=== PATIENT | female | born 1940 | race Caucasian/White ===

== ENCOUNTER 2018-09-18 14:27 | Inpatient (IN) | payer MEDICARE, OTHER ==
[~2018-09-18] VITALS: Ht 167.6 cm; Wt 92.1 kg
[~2018-09-18 14:27] MED LIST: CALCAVITDA PO; ERGO400 PO; FISH1000 PO; OMEP20ER PO; SIMV5; TOCO1000 PO
[2018-09-18] MEDS ORDERED: ATOR10 PO (14:54)
[2018-09-18] MEDS ORDERED: SERT50 PO (14:54)
[2018-09-18] MEDS ORDERED: METO25ER PO (14:55)
[2018-09-18 15:03] LABS: BASOPHILS ABSOLUTE AUTO 0.08 K/mm3 (0.00-0.23); BASOPHILS PERCENT AUTO 1 % (0-2); EOSINOPHILS ABSOLUTE AUTO 0.11 K/mm3 (0.00-0.68); EOSINOPHILS PERCENT AUTO 2 % (0-6); Hematocrit 44.3 % (33.0-51.0); Hemoglobin 14.5 g/dL (11.5-16.0); IMMATURE GRAN ABSOLUTE AUTO 0.01 K/mm3 (0.00-0.10); IMMATURE GRAN PERCENT AUTO 0 % (0-1); LYMPHOCYTES PERCENT AUTO 32 % (21-46); MONOCYTES ABSOLUTE AUTO 0.61 K/mm3 (0.16-1.47); MONOCYTES PERCENT AUTO 11 % (4-13); Mean Corpuscular HGB 30.3 pg (26.0-34.0); Mean Corpuscular HGB Conc 32.7 g/dL (31.5-36.5); Mean Corpuscular Volume 93 fL (80-100); Mean Platelet Volume 9.2 fL (9.1-12.4); NEUTROPHILS ABSOLUTE AUTO 2.97 K/mm3 (1.96-9.15); NEUTROPHILS PERCENT AUTO 53 % (41-73); Platelet Count 222 K/mm3 (150-400); RDW Coefficient Variation 13.2 % (11.7-14.2); RDW Standard Deviation 44.6 fL (35.1-46.3); Red Blood Cell Count 4.78 M/mm3 (3.80-5.20); White Blood Cell Count 5.58 K/mm3 (4.00-11.30)
[2018-09-18 15:12] LABS: Alanine Aminotransfer (ALT/SGP 24 U/L (12-78); Albumin, Blood 3.8 g/dL (3.4-5.0); Albumin/Globulin Ratio 1.2 (0.8-1.8); Alk Phos 119 U/L (50-136); Anion Gap 8 mmol/L (6-16); Aspartate Aminotrans (AST/SGOT 25 U/L (12-37); Bilirubin, Total 0.6 mg/dL (0.1-1.0); Blood Urea Nitrogen 12 mg/dL (8-24); Bun/Creatinine Ratio 17.8 (12.0-20.0); CO2, Blood 26 mmol/L (21-32); Calcium, Blood 8.6 mg/dL (8.5-10.1); Chloride, Blood 110 mmol/L (98-108); Creatinine, Blood 0.68 mg/dL (0.40-1.00); Globulin, Blood 3.3 g/dL (2.2-4.0); Glomerular Filtration Rate >60 (60-); Glucose, Blood 95 mg/dL (70-99); Potassium, Blood 4.2 mmol/L (3.5-5.5); Sodium, Blood 144 mmol/L (136-145); Total Protein, Blood 7.1 g/dL (6.4-8.2); Troponin I <0.015 ng/mL (0.000-0.040)
[2018-09-18 16:23] LABS: Source, Urine Catheter
[2018-09-18 16:48] LABS: Appearance, Urine Clear (Clear); Bilirubin, Urine Neg (Neg); Blood, Urine Neg (Neg); Color, Urine Yellow (P-Yellow); Glucose Qualitative, Urine Neg (Neg); Ketones, Urine Neg (Neg); Leukocyte Esterase, Urine Neg (Neg); Nitrite, Urine Neg (Neg); Protein, Urine Neg (Neg); Specific Gravity, Urine 1.005 (1.003-1.022); Urobilinogen, Urine NORM (Normal)
[2018-09-18 18:34] LABS: International Normalized Ratio 0.94
[2018-09-18 20:33] LABS: Test Name PTT
[2018-09-18] MEDS ORDERED: Omeprazole20 M1 PO (23:02)
--- NOTE | 2018-09-19 03:58 | NUR ---
T/F AND SUMMARY: REPORT RECIEVED FROM IRASEMA BARRETT RN AND PT T/F VIA BED TO ROOM 310 W/DAUGHTER (ANASTACIA) AT BEDSIDE. PT ADMITTED W/POSSIBLE STROKE AND EXPRESSIVE APHASIA. SHE'S BEEN A/OX4, SPECIFYING NEEDS AND ANSWERING Q'S APPROPRIATELY BUT SEEMS TO HAVE SOMEWHAT DELAYED RESPONSES AT TIMES. 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 NO FACIAL DROOP OBSERVED AND PT TOLERATED SIPS OF WATER W/MEDS W/O SWALLOW DIFFICULTIES. SHE'S BEEN NPO FOR CORONARY RISK PANEL SINCE RECIEVING HS MEDS. TELEMETRY IN PLACE IN NSR AT 60'S-70'S BPM. PT AMBULATES W/SBA TO TOILET AND NO DEFICITS OR WEAKNESS OBSERVED. PAS INTACT. ECHO PLANNED FOR THIS AM AND PT TO F/U W/NEURO AT [facility] AFTER D/C. NO ACUTE CHANGES, VSS/AFEBRILE. WILL REPORT TO DAY RN.
[2018-09-19 05:24] LABS: Hematocrit 41.5 % (33.0-51.0); Hemoglobin 13.5 g/dL (11.5-16.0); Mean Corpuscular HGB 29.9 pg (26.0-34.0); Mean Corpuscular HGB Conc 32.5 g/dL (31.5-36.5); Mean Corpuscular Volume 92 fL (80-100); Mean Platelet Volume 9.1 fL (9.1-12.4); Platelet Count 213 K/mm3 (150-400); RDW Coefficient Variation 13.1 % (11.7-14.2); RDW Standard Deviation 43.8 fL (35.1-46.3); Red Blood Cell Count 4.51 M/mm3 (3.80-5.20); White Blood Cell Count 6.15 K/mm3 (4.00-11.30)
[2018-09-19 05:45] LABS: Anion Gap 7 mmol/L (6-16); Blood Urea Nitrogen 10 mg/dL (8-24); Bun/Creatinine Ratio 15.8 (12.0-20.0); CHOL/HDL RATIO 2.8; CO2, Blood 26 mmol/L (21-32); Calcium, Blood 8.1 mg/dL (8.5-10.1); Chloride, Blood 110 mmol/L (98-108); Cholesterol 226 mg/dL (50-200); Creatinine, Blood 0.63 mg/dL (0.40-1.00); Glomerular Filtration Rate >60 (60-); Glucose, Blood 88 mg/dL (70-99); HDL Cholesterol 81 mg/dL (>39); LDL/HDL RATIO 1.5; Low Density Lipoprotein Chol 125 mg/dL (0-110); Potassium, Blood 3.7 mmol/L (3.5-5.5); Sodium, Blood 143 mmol/L (136-145); Triglycerides 99 mg/dL (30-160); Very Low Density Lipoprot Chol 19 mg/dL (6-32)
--- NOTE | 2018-09-19 13:00 | NUR ---
Echocardiogram completed.
--- NOTE | 2018-09-19 22:34 | NUR ---
PATIENT AMBULATED OUT INTO [facility] UNABLE TO VERBALIZE HER NEEDS. PATIENT REDIRECTED BACK INTO ROOM. PATIENT ASKED A FEW QUESTIONS AND WANTED HER TV TURNED OFF. GOING TO CHANGE CALL LIGHT SYSTEM TO TAB SYSTEM. PATIENT BACK INTO BED TO GO TO SLEEP. WILL CONTINUE TO MONITOR.
--- NOTE | 2018-09-20 00:01 | NUR ---
PATIENT CALL LIGHT CHANGED TO TOUCH PAD. INSTRUCTIONS GIVEN. WILL CONTINUE TO MONITOR.
--- NOTE | 2018-09-20 03:52 | NUR ---
SHIFT SUMMARY PATIENT WITH POSSIBLE EXPRESSIVE APHASIA UNABLE TO VERBALIZE HER NEEDS. PATIENT AMBULATED OUT INTO THE [place] AND WAS REDIRECTED BACK INTO THE ROOM. PATIENT POINTED TO WHITE BOARD AND TV. AFTER A FEW QUESTIONS, PATIENT NODDED SHE WANTED THE TV OFF. NEURO CHECKS STABLE PEDAL STRENGTH EQUAL BILATERALLY. RIGHT HAND WEAK AND LEFT HAND STRONG. TAKES MEDICATION WHOLE WITH WATER. AXO X4 AND STABLE SBA TO BR. PIV REMAINS INTACT. TRAFFIC OPERATOR REPORTS NSR 65. DENIES PAIN, SOB, AND N/V. VSS/AFEBRILE. TOUCH PAD CALL SYSTEM IN PLACE. BED IN LOWEST POSITION. WILL CONTINUE TO MONITOR UNTIL DAY SHIFT NURSE ASSUMES CARE.
--- NOTE | 2018-09-20 18:39 | NUR ---
SHIFT SUMMARY: NO ACUTE CHANGES TO REPORT THIS SHIFT. PT A&O; CALM & COOPERATIVE WITH CARE. NO C/O PAIN OR NAUSEA THIS SHIFT. EVOLVING CVA; R HAND WEAK; R SIDE FACIAL DROOP; EXPRESSIVE APHASIA.; NEURO CONSULT REQUESTED (DR. RODRIGUEZ) THIS SHIFT. HEAD CT PERFORMED THIS SHIFT; NO ACUTE CHANGES/MASSES. PT & OT EVAL & TREAT. WCTM.
--- NOTE | 2018-09-21 03:35 | NUR ---
SHIFT SUMMARY PATIENT HAD NO ACUTE CHANGES OBSERVED THIS SHIFT. AXOX 3 WITH ONE ASSIST TO BSC. NON VERBAL; EXPRESSIVE APHASIA; EVOLVING CVA WITH RIGHT HAND WEAKNESS AND RIGHT FACIAL DROOP. TAKES MEDS WHOLE WITH WATER. TOUCH PAD CALL LIGHT. BED ALARM ACTIVATED PATIENT IS NOT USING TOUCH PAD AFTER INSTRUCTIONS. VSS/AFEBRILE. DENIES PAIN, SOB, AND N/V. BED IN LOWEST POSITION. WILL CONTINUE TO MONITOR UNTIL DAY SHIFT NURSE ASSUMES CARE.
--- NOTE | 2018-09-21 18:16 | NUR ---
SHIFT SUMMARY: NO ACUTE CHANGES TO REPORT THIS SHIFT. EVOLVING CVA; EXPRESSIVE APHASIA. MRI OF HEAD THIS SHIFT; REPORT AVAILABLE. DYSPHAGIA PRECAUTIONS; MECHANICAL SOFT c GROUND MEAT; THIN LIQUIDS; UPRIGHT FOR MEALS; FEEDER. PT HAS BEEN DISCHARGED BY NEUROLOGY SERVICES. JADE.
--- NOTE | 2018-09-22 04:50 | NUR ---
SHIFT SUMMARY: PT IS ALERT, RESPONSIVE TO VERBAL STIMULI, ATTEMPTS VERBAL RESPONSE BUT IS UNABLE AT THIS TIME. PT HAS SIGNIFICANT R-SIDED WEAKNESS, MAX ASSIST, NOT OUT OF BED OVERNIGHT, 1-2 PERSON CHANGE. PT PUT ON BED AMANDA SEVERAL TIMES BUT DID NOT VOID, SEVERAL SMALL INCONTINENT VOIDS. PT SHOWS NO S/S FOR PAIN, NAUSEA, VOMITING, OR SOB. PT SLEPT INTERMITTENTLY THROUGHOUT THE NIGHT. NO ACUTE CHANGES. BED IN LOW POSITION, CALL LIGHT WITHIN REACH, BED ALARM SET.
--- NOTE | 2018-09-22 14:04 | NUR ---
PT APPEARS TO BE SLEEPING. NO S/SX OF DISTRESS.
--- NOTE | 2018-09-22 17:04 | NUR ---
TODAY THIS PT HAS HAD MANY VISITORS. SHE HAS SLEPT BETWEEN VISITORS. SHE HAS FED HERSELF MEALS AND APPLESAUCE BETWEEN MEALS. SHE IS UP AT 90 DEGREES FOR MEALS AND CAUTIOUSLY WATCHED FOR POCKETING FOOD AND ASPIRATION. WITH ASSISTANCE FROM PHYSICAL THERAPY, THE PT GOT UP IN THE RECLINER FOR ABOUT AN HOUR. A LIFT SHOULD BE USED TO TRANSFER THE PT. SHE IS EXTREMELY WEAK ON HER RIGHT SIDE, AND HER KNEE ANTHONY WHEN STANDING. A BED AMANDA HAS BEEN USED FOR TOILETING. HER FAMILY IS VERY INTERACTIVE AND CONTINUE TO TRY TO WORK WITH HER SPEECH AND EATING. NO ACUTE CHANGES THIS SHIFT. WILL CONTINUE TO MONITOR.
--- NOTE | 2018-09-23 04:50 | NUR ---
SHIFT SUMMARY: PT IS ALERT, CONTINUES TO HAVE EXPRESSIVE APHASIA AND HAS TROUBLE COMMUNICATING HER NEEDS. PT IS A LIFT FOR TRANSFERS. PT IS CALM AND COOPERATIVE WITH CARE. PT INCONTINENT OVERNIGHT, CHANGED AND CLEANED NEEDED. PT SHOWS NO S/S FOR PAIN, NAUSEA, VOMITING, OR SOB. PT SLEPT MUCH OF THE NIGHT. NO ACUTE CHANGES OR COMPLICATIONS THIS SHIFT. BED IN LOW POSITION, CALL LIGHT WITHIN REACH.
[2018-09-23 05:00] LABS: Hematocrit 44.2 % (33.0-51.0); Hemoglobin 14.5 g/dL (11.5-16.0); Mean Corpuscular HGB 30.5 pg (26.0-34.0); Mean Corpuscular HGB Conc 32.8 g/dL (31.5-36.5); Mean Corpuscular Volume 93 fL (80-100); Mean Platelet Volume 9.1 fL (9.1-12.4); Platelet Count 234 K/mm3 (150-400); RDW Standard Deviation 44.6 fL (35.1-46.3); Red Blood Cell Count 4.76 M/mm3 (3.80-5.20); White Blood Cell Count 8.05 K/mm3 (4.00-11.30)
[2018-09-23 05:20] LABS: Anion Gap 9 mmol/L (6-16); Blood Urea Nitrogen 30 mg/dL (8-24); Bun/Creatinine Ratio 39.1 (12.0-20.0); CO2, Blood 24 mmol/L (21-32); Calcium, Blood 8.4 mg/dL (8.5-10.1); Chloride, Blood 109 mmol/L (98-108); Creatinine, Blood 0.77 mg/dL (0.40-1.00); Glomerular Filtration Rate >60 (60-); Glucose, Blood 105 mg/dL (70-99); Potassium, Blood 3.5 mmol/L (3.5-5.5); Sodium, Blood 142 mmol/L (136-145)
--- NOTE | 2018-09-23 07:49 | NUR ---
ASSUMED CARE: PT CALLED FOR ASSISTANCE WITH BED AMANDA WHICH WAS PROVIDED. RIGHT SIDED FACIAL DROOP AND RIGHT SIDED WEAKNESS NOTED. CALL LIGHT IN REACH
--- NOTE | 2018-09-23 18:58 | NUR ---
THIS PT HAS HAD VISITORS ALL DAY AT THE BEDSIDE. SHE HAS WORKED ON FEEDING HERSELF WITH HER LEFT HAND. HER FAMILY ENCOURAGES HER TO COMMUNICATE WITH THEM AND EXERCISE HER RIGHT HAND. SHE GOT UP WITH PHYSICAL THERAPY TO THE RECLINER. SHE USES THE BEDPAN.
[2018-09-24 05:18] LABS: Anion Gap 7 mmol/L (6-16); Blood Urea Nitrogen 27 mg/dL (8-24); Bun/Creatinine Ratio 36.1 (12.0-20.0); CO2, Blood 26 mmol/L (21-32); Calcium, Blood 8.4 mg/dL (8.5-10.1); Chloride, Blood 108 mmol/L (98-108); Creatinine, Blood 0.75 mg/dL (0.40-1.00); Glomerular Filtration Rate >60 (60-); Glucose, Blood 112 mg/dL (70-99); Potassium, Blood 3.8 mmol/L (3.5-5.5); Sodium, Blood 141 mmol/L (136-145)
--- NOTE | 2018-09-24 05:32 | NUR ---
SHIFT SUMMARY: PT IS ALERT BUT NON-VERBAL. FAMILY IN THE ROOM AT START OF SHIFT. PT NOT USING HER CALL LIGHT, CONTINUES TO HAVE SUBSTANTIAL R. SIDED WEAKNESS. PT REQUIRES A LIFT FOR TRANSFERS. PT INTERMITTENTLY INCONTINENT, CHANGED AND CLEANED NEEDED. PT SHOWS NO S/S FOR PAIN, NAUSEA, VOMITING, OR SOB. NO ACUTE CHANGES OR COMPLICATIONS OVERNIGHT. BED IN LOW POSITION, CALL LIGHT WITHIN REACH. WILL REPORT TO DAY NURSE.
--- NOTE | 2018-09-24 12:52 | NUR ---
PERMISSION TO GIVE CARE Patient gave permission to [facility] to provide care on 09/25/18 from 0630 to 1200.
--- NOTE | 2018-09-24 18:51 | NUR ---
SHIFT SUMMARY- PT ABLE TO ANSWER YES/NO QUESTIONS AND FOLLOW SIMPLE DIRECTIONS. PT'S L SIDE IS MUCH WEAKER THAN THE RIGHT. PT/OT IN TO SEE PT TODAY. PLAN IS TO D/C TO IRU IN [facility] AT 9AM. FACILITY REQUEST NURSE CALL TO GIVE REPORT AT [phone] PRIOR TO PT LEAVING. WILL PASS ALONG TO VICE PRESIDENT OF NEWS RN. PT 2 ASSIST STAND PIVOT TRANSFER WITH GAIT BELT. PT TAKES PILLS WHOLE IN APPLESAUCE. AT BEDSIDE. PT DENIES SOB. RESP E/U ON RA. PT DENIES PAIN. DENIES N/V. NO OTHER SIGNIFICANT CHANGES THIS SHIFT.
--- NOTE | 2018-09-25 04:50 | NUR ---
SHIFT SUMMARY ALERT; ANSWERS Y/N QUESTIONS. DIFFICULT TO GET TRUE MEANING OF WHAT SHE IS REQUESTING. HAS PICTURE BOARD, BUT DOES NOT REALLY REFLECT HER NEEDS MUCH OF THE TIME. NO NOTED S/SX OF PAIN/DISCOMFORT. ROLLS EASILY TO R SIDE. NO ACUTE CHANGES OVERNIGHT. APPEARED TO REST MUCH OF SHIFT. VSS/AFEBRILE. TELE RUNNING NSR @ 67 PER PCU PUTTY MAKER. BED IN LOWEST POSITION. ALARM ON. CALL LIGHT AND BELONGINGS WITHIN REACH. WCTM. REPORT TO ONCOMING RN.
[2018-09-25] MEDS ORDERED: ATOR40TA PO (08:37)
[2018-09-25] MEDS ORDERED: METO50ER PO (08:37)
[2018-09-25] MEDS ORDERED: Omeprazole20 M1 PO (08:38)
[2018-09-25] MEDS ORDERED: ASPI81CH PO (08:38)
[2018-09-25] MEDS ORDERED: AMLO5 PO (08:38)
[2018-09-25] MEDS ORDERED: SERT50 PO (08:38)
[2018-09-25] MEDS ORDERED: LISI5 PO (08:39)
[2018-09-25] MEDS ORDERED: CLOP75 PO (08:39)
--- NOTE | 2018-09-25 09:14 | NUR ---
REPORT GIVEN TO VANGIE GONZALEZ AT [facility].
--- NOTE | 2018-09-25 09:35 | NUR ---
DISCHARGE NOTE PT TRANSFER TO [facility] VIA STRETCHER IN AMBULANCE. BROTHER TO FOLLOW TRANSPORT TEAM. ALL VALUABLES SENT WITH FAMILY AT TIME OF DISCHARGE. IV DISCONTINUED INTACT. TRANSFER PAPERWORK FAXED AND CONFIRMATION OF RECEIPT RECEIVED BY MACRINA DEAN RN. REPORT GIVEN TO LISA AT RECEIVING FACILITY.
== END 2018-09-25 09:56 | DRG 65 ==
LOC: ER 14:27 → MEDS 18:15
PROVIDERS: Emergency Medicine; ADMIT Internal Medicine
DX: I63.512 Cerebral infarction due to unspecified occlusion or stenosis of left middle cerebral artery (principal); G81.91 Hemiplegia, unspecified affecting right dominant side; R47.01 Aphasia; E78.5 Hyperlipidemia, unspecified; I10 Essential (primary) hypertension; F41.9 Anxiety disorder, unspecified; F32.9 Major depressive disorder, single episode, unspecified; I25.10 Atherosclerotic heart disease of native coronary artery without angina pectoris; K21.9 Gastro-esophageal reflux disease without esophagitis; E66.9 Obesity, unspecified; M81.0 Age-related osteoporosis without current pathological fracture; G44.209 Tension-type headache, unspecified, not intractable; Z95.1 Presence of aortocoronary bypass graft
CPT/HCPCS: 36415; 51701; 70450; 70496; 70498; 70551; 71046; 80048; 80053; 80061; 81003; 82947; 83036; 84484; 85025; 85027; 85610; 85730; 92507; 92523; 92610; 93005; 93010; 93306; 97110; 97112; 97116; 97162; 97166; 97530; 99285-25; G0515; J1650; Q9967

== ENCOUNTER 2019-12-18 19:53 | Emergency (ER) | payer MEDICARE, OTHER ==
[~2019-12-18] VITALS: Ht 170.2 cm; Wt 72.6 kg
[~2019-12-18 19:53] MED LIST changes: +AMLO5 PO; +ASPI81CH PO; +ATOR10 PO; +ATOR40TA PO; +CLOP75 PO; +LISI5 PO; +METO25ER PO; +METO50ER PO; +Omeprazole20 M1 PO; +SERT50 PO
[2019-12-18] MEDS ORDERED: CITA20 PO (20:22)
[2019-12-18] MEDS ORDERED: Abilify2 MG PO (20:22)
[2019-12-18] MEDS ORDERED: FAMO20 PO (20:22)
== END 2019-12-18 22:40 | disposition home or self-care (01) ==
LOC: ER 19:53
DX: S00.83XA Contusion of other part of head, initial encounter (principal); S80.212A Abrasion, left knee, initial encounter; F03.90 Unspecified dementia, unspecified severity, without behavioral disturbance, psychotic disturbance, mood disturbance, and anxiety; I25.810 Atherosclerosis of coronary artery bypass graft(s) without angina pectoris; I10 Essential (primary) hypertension; F41.8 Other specified anxiety disorders; K21.9 Gastro-esophageal reflux disease without esophagitis; Z79.82 Long term (current) use of aspirin; Z79.899 Other long term (current) drug therapy; W18.30XA Fall on same level, unspecified, initial encounter
CPT/HCPCS: 70450; 72125; 99284-25

== ENCOUNTER 2019-12-19 12:36 | Emergency (ER) | payer MEDICARE, OTHER ==
[~2019-12-19] VITALS: Ht 154.9 cm; Wt 65.8 kg
[~2019-12-19 12:36] MED LIST changes: +Abilify2 MG PO; +CITA20 PO; +FAMO20 PO
[2019-12-19 13:26] LABS: BASOPHILS ABSOLUTE AUTO 0.07 K/mm3 (0.00-0.23); BASOPHILS PERCENT AUTO 1 % (0-2); EOSINOPHILS ABSOLUTE AUTO 0.07 K/mm3 (0.00-0.68); EOSINOPHILS PERCENT AUTO 1 % (0-6); Hematocrit 43.7 % (33.0-51.0); Hemoglobin 14.2 g/dL (11.5-16.0); IMMATURE GRAN ABSOLUTE AUTO 0.02 K/mm3 (0.00-0.10); IMMATURE GRAN PERCENT AUTO 0 % (0-1); LYMPHOCYTES ABSOLUTE AUTO 1.56 K/mm3 (0.84-5.20); LYMPHOCYTES PERCENT AUTO 20 % (21-46); MONOCYTES PERCENT AUTO 6 % (4-13); Mean Corpuscular HGB 30.5 pg (26.0-34.0); Mean Corpuscular HGB Conc 32.5 g/dL (31.5-36.5); Mean Corpuscular Volume 94 fL (80-100); Mean Platelet Volume 8.6 fL (9.1-12.4); NEUTROPHILS ABSOLUTE AUTO 5.62 K/mm3 (1.96-9.15); NEUTROPHILS PERCENT AUTO 72 % (41-73); Platelet Count 242 K/mm3 (150-400); RDW Coefficient Variation 12.8 % (11.7-14.2); RDW Standard Deviation 44.1 fL (35.1-46.3); Red Blood Cell Count 4.66 M/mm3 (3.80-5.20); White Blood Cell Count 7.84 K/mm3 (4.00-11.30)
[2019-12-19 13:52] LABS: Alanine Aminotransfer (ALT/SGP 15 U/L (12-78); Albumin, Blood 3.9 g/dL (3.4-5.0); Albumin/Globulin Ratio 1.1 (0.8-1.8); Alk Phos 181 U/L (50-136); Anion Gap 5 mmol/L (6-16); Aspartate Aminotrans (AST/SGOT 17 U/L (12-37); Bilirubin, Total 0.8 mg/dL (0.1-1.0); Blood Urea Nitrogen 13 mg/dL (8-24); Bun/Creatinine Ratio 16.7 (12.0-20.0); CO2, Blood 29 mmol/L (21-32); Calcium, Blood 8.6 mg/dL (8.5-10.1); Chloride, Blood 107 mmol/L (98-108); Creatinine, Blood 0.78 mg/dL (0.40-1.00); Globulin, Blood 3.6 g/dL (2.2-4.0); Glomerular Filtration Rate >60 (60-); Glucose, Blood 89 mg/dL (70-99); Sodium, Blood 141 mmol/L (136-145); Total Protein, Blood 7.5 g/dL (6.4-8.2); Troponin I <0.015 ng/mL (0.000-0.040)
== END 2019-12-19 15:33 | disposition home or self-care (01) ==
LOC: ER 12:36
PROVIDERS: Emergency Medicine
DX: R07.9 Chest pain, unspecified (principal); I10 Essential (primary) hypertension; F41.8 Other specified anxiety disorders; K21.9 Gastro-esophageal reflux disease without esophagitis; I25.810 Atherosclerosis of coronary artery bypass graft(s) without angina pectoris; R47.01 Aphasia; Z86.73 Personal history of transient ischemic attack (TIA), and cerebral infarction without residual deficits; Z79.899 Other long term (current) drug therapy
CPT/HCPCS: 36415; 71046; 80053; 84484; 85025; 93005; 93010; 99285-25

== ENCOUNTER → 2020-01-24 | Outpatient (CLI) | payer MEDICARE, OTHER ==
[2020-01-24 16:50] LABS: Bilirubin, Urine Neg (Neg); Blood, Urine 3+ (Neg); Glucose Qualitative, Urine Neg (Neg); Ketones, Urine 1+ (Neg); Leukocyte Esterase, Urine 3+ (Neg); Nitrite, Urine Neg (Neg); Protein, Urine 2+ (Neg); Specific Gravity, Urine 1.025 (1.003-1.022); Urobilinogen, Urine 2+ (Normal)
[2020-01-24 17:05] LABS: Appearance, Urine Cloudy (Clear); Color, Urine Amber (P-Yellow)
[2020-01-24 17:06] LABS: White Blood Cells, Urine TNTC /hpf (0-5)
[2020-01-24 17:10] LABS: Bacteria Many /hpf; Squamous Epithelial Cells Few /hpf (Few)
== END | disposition home or self-care (01) ==
LOC: LAB SHORT 13:14 → LAB 13:14
PROVIDERS: Family Medicine
DX: N39.0 Urinary tract infection, site not specified (principal)
CPT/HCPCS: 81001; 87077; 87086; 87186

== ENCOUNTER 2020-04-20 11:46 | Emergency (ER) | payer MEDICARE, OTHER ==
[~2020-04-20] VITALS: Ht 172.7 cm; Wt 97.5 kg
[2020-04-20] MEDS ORDERED: Abilify2 MG PO (12:04)
[2020-04-20] MEDS ORDERED: ACET325 PO (12:04)
[2020-04-20] MEDS ORDERED: CLOP75 PO (12:05)
[2020-04-20] MEDS ORDERED: CITA20 PO (12:05)
[2020-04-20] MEDS ORDERED: ATOR20 PO (12:05)
[2020-04-20] MEDS ORDERED: TUMS500 MG PO (12:06)
[2020-04-20] MEDS ORDERED: METO25ER PO (12:06)
[2020-04-20 12:17] LABS: BASOPHILS ABSOLUTE AUTO 0.08 K/mm3 (0.00-0.23); BASOPHILS PERCENT AUTO 1 % (0-2); EOSINOPHILS PERCENT AUTO 2 % (0-6); Hematocrit 42.3 % (33.0-51.0); Hemoglobin 13.5 g/dL (11.5-16.0); IMMATURE GRAN ABSOLUTE AUTO 0.01 K/mm3 (0.00-0.10); IMMATURE GRAN PERCENT AUTO 0 % (0-1); LYMPHOCYTES ABSOLUTE AUTO 1.82 K/mm3 (0.84-5.20); LYMPHOCYTES PERCENT AUTO 28 % (21-46); MONOCYTES ABSOLUTE AUTO 0.55 K/mm3 (0.16-1.47); MONOCYTES PERCENT AUTO 8 % (4-13); Mean Corpuscular HGB 29.6 pg (26.0-34.0); Mean Corpuscular HGB Conc 31.9 g/dL (31.5-36.5); Mean Corpuscular Volume 93 fL (80-100); Mean Platelet Volume 8.4 fL (9.1-12.4); NEUTROPHILS ABSOLUTE AUTO 3.98 K/mm3 (1.96-9.15); NEUTROPHILS PERCENT AUTO 61 % (41-73); Platelet Count 251 K/mm3 (150-400); RDW Standard Deviation 44.5 fL (35.1-46.3); Red Blood Cell Count 4.56 M/mm3 (3.80-5.20); White Blood Cell Count 6.54 K/mm3 (4.00-11.30)
[2020-04-20 12:48] LABS: Alanine Aminotransfer (ALT/SGP 18 U/L (12-78); Albumin, Blood 3.4 g/dL (3.4-5.0); Albumin/Globulin Ratio 1.1 (0.8-1.8); Alk Phos 118 U/L (50-136); Anion Gap 5 mmol/L (6-16); Aspartate Aminotrans (AST/SGOT 13 U/L (12-37); Bilirubin, Total 0.5 mg/dL (0.1-1.0); Blood Urea Nitrogen 12 mg/dL (8-24); Bun/Creatinine Ratio 16.3 (12.0-20.0); CO2, Blood 28 mmol/L (21-32); Calcium, Blood 8.6 mg/dL (8.5-10.1); Chloride, Blood 105 mmol/L (98-108); Creatinine, Blood 0.74 mg/dL (0.40-1.00); Globulin, Blood 3.1 g/dL (2.2-4.0); Glomerular Filtration Rate >60 (60-); Glucose, Blood 97 mg/dL (70-99); Potassium, Blood 3.7 mmol/L (3.5-5.5); Sodium, Blood 138 mmol/L (136-145); Total Protein, Blood 6.5 g/dL (6.4-8.2); Troponin I <0.015 ng/mL (0.000-0.040)
== END 2020-04-20 16:27 | disposition home or self-care (01) ==
LOC: ER 11:46
PROVIDERS: Emergency Medicine
DX: R07.9 Chest pain, unspecified (principal); R42 Dizziness and giddiness; R41.0 Disorientation, unspecified; R00.2 Palpitations; I10 Essential (primary) hypertension; F41.9 Anxiety disorder, unspecified; F32.9 Major depressive disorder, single episode, unspecified; K21.9 Gastro-esophageal reflux disease without esophagitis; I25.810 Atherosclerosis of coronary artery bypass graft(s) without angina pectoris; Z95.1 Presence of aortocoronary bypass graft; Z79.02 Long term (current) use of antithrombotics/antiplatelets; Z86.73 Personal history of transient ischemic attack (TIA), and cerebral infarction without residual deficits; Z79.899 Other long term (current) drug therapy
CPT/HCPCS: 71045; 80053; 84484; 85025; 93005; 93010; 99285-25

== ENCOUNTER 2020-06-11 11:23 | Emergency (ER) | payer MEDICARE, OTHER ==
[~2020-06-11] VITALS: Ht 162.6 cm; Wt 77.1 kg
[~2020-06-11 11:23] MED LIST changes: +ACET325 PO; +ATOR20 PO; +TUMS500 MG PO
[2020-06-11] MEDS ORDERED: ATORVASTATIN CA20 MG PO (14:33)
== END 2020-06-11 17:53 | disposition home or self-care (01) ==
LOC: ER 11:23
DX: S93.401A Sprain of unspecified ligament of right ankle, initial encounter (principal); S00.03XA Contusion of scalp, initial encounter; I69.320 Aphasia following cerebral infarction; F41.9 Anxiety disorder, unspecified; F32.9 Major depressive disorder, single episode, unspecified; K21.9 Gastro-esophageal reflux disease without esophagitis; I10 Essential (primary) hypertension; I25.810 Atherosclerosis of coronary artery bypass graft(s) without angina pectoris; Z79.02 Long term (current) use of antithrombotics/antiplatelets; Z79.899 Other long term (current) drug therapy; Z95.1 Presence of aortocoronary bypass graft; W18.2XXA Fall in (into) shower or empty bathtub, initial encounter; Y92.121 Bathroom in nursing home as the place of occurrence of the external cause
CPT/HCPCS: 70450; 73562-RT; 73590; 73610; 73630; 99284-25

== ENCOUNTER → 2020-12-15 | Outpatient (CLI) | payer MEDICARE, OTHER ==
[~2020-12-15] MED LIST changes: +ATORVASTATIN CA20 MG PO
[2020-12-15 12:17] LABS: Bilirubin, Urine Neg (Neg); Blood, Urine Neg (Neg); Glucose Qualitative, Urine Neg (Neg); Ketones, Urine Neg (Neg); Leukocyte Esterase, Urine Neg (Neg); Nitrite, Urine Neg (Neg); Protein, Urine Neg (Neg); Specific Gravity, Urine 1.015 (1.003-1.022); Urobilinogen, Urine NORM (Normal)
[2020-12-15 12:18] LABS: Appearance, Urine Clear (Clear); Color, Urine Yellow (P-Yellow)
== END ==
LOC: LAB SHORT 10:05
PROVIDERS: Family Medicine
DX: N39.0 Urinary tract infection, site not specified (principal)
CPT/HCPCS: 81003

== ENCOUNTER 2021-01-14 16:06 | Emergency (ER) | payer MEDICARE, OTHER ==
[~2021-01-14] VITALS: Ht 162.6 cm; Wt 72.6 kg
[2021-01-14] MEDS ORDERED: PANT40 PO (17:01)
[2021-01-14 17:04] LABS: BASOPHILS ABSOLUTE AUTO 0.05 K/mm3 (0.00-0.23); BASOPHILS PERCENT AUTO 0 % (0-2); EOSINOPHILS ABSOLUTE AUTO 0.01 K/mm3 (0.00-0.68); EOSINOPHILS PERCENT AUTO 0 % (0-6); Hematocrit 41.6 % (33.0-51.0); Hemoglobin 13.6 g/dL (11.5-16.0); IMMATURE GRAN ABSOLUTE AUTO 0.03 K/mm3 (0.00-0.10); IMMATURE GRAN PERCENT AUTO 0 % (0-1); LYMPHOCYTES ABSOLUTE AUTO 0.84 K/mm3 (0.84-5.20); LYMPHOCYTES PERCENT AUTO 7 % (21-46); MONOCYTES ABSOLUTE AUTO 0.45 K/mm3 (0.16-1.47); MONOCYTES PERCENT AUTO 4 % (4-13); Mean Corpuscular HGB 30.4 pg (26.0-34.0); Mean Corpuscular HGB Conc 32.7 g/dL (31.5-36.5); Mean Corpuscular Volume 93 fL (80-100); Mean Platelet Volume 9.5 fL (9.1-12.4); NEUTROPHILS ABSOLUTE AUTO 9.95 K/mm3 (1.96-9.15); NEUTROPHILS PERCENT AUTO 88 % (41-73); Platelet Count 198 K/mm3 (150-400); RDW Coefficient Variation 13.1 % (11.7-14.2); RDW Standard Deviation 44.5 fL (35.1-46.3); Red Blood Cell Count 4.47 M/mm3 (3.80-5.20); White Blood Cell Count 11.33 K/mm3 (4.00-11.30)
[2021-01-14 17:16] LABS: Anion Gap 4 mmol/L (6-16); Blood Urea Nitrogen 13 mg/dL (8-24); Bun/Creatinine Ratio 17.2 (12.0-20.0); CO2, Blood 29 mmol/L (21-32); Chloride, Blood 109 mmol/L (98-108); Creatinine, Blood 0.75 mg/dL (0.40-1.00); Glomerular Filtration Rate >60 (60-); Glucose, Blood 120 mg/dL (70-99); Sodium, Blood 142 mmol/L (136-145)
[2021-01-14] MEDS ORDERED: Acetaminophen500 MG PO (19:43)
[2021-02-23] MEDS ORDERED: CEFP200 PO (01:08)
== END 2021-01-14 21:10 | disposition home or self-care (01) ==
LOC: ER 16:06
PROVIDERS: Student in an Organized Health Care Education/Training Program
DX: S42.201A Unspecified fracture of upper end of right humerus, initial encounter for closed fracture (principal); I69.351 Hemiplegia and hemiparesis following cerebral infarction affecting right dominant side; Z79.02 Long term (current) use of antithrombotics/antiplatelets; Z79.899 Other long term (current) drug therapy; W19.XXXA Unspecified fall, initial encounter; Y92.009 Unspecified place in unspecified non-institutional (private) residence as the place of occurrence of the external cause
CPT/HCPCS: 70450; 72125; 73030; 73502; 80048; 85025; 93005; 93010; 99284-25; A9270

== ENCOUNTER 2023-07-17 10:48 | Emergency (ER) | payer MEDICARE, OTHER ==
[~2023-07-17] VITALS: Ht 162.6 cm; Wt 74.8 kg
[~2023-07-17 10:48] MED LIST changes: +Acetaminophen500 MG PO; +CEFP200 PO; +DOCU100 PO; +ONDA4; +PANT40 PO; +ZYRTEC10 M1 PO
[2023-07-17 11:20] LABS: BASOPHILS ABSOLUTE AUTO 0.09 K/mm3 (0.00-0.23); BASOPHILS PERCENT AUTO 1 % (0-2); EOSINOPHILS PERCENT AUTO 1 % (0-6); Hemoglobin 13.2 g/dL (11.5-16.0); IMMATURE GRAN ABSOLUTE AUTO 0.02 K/mm3 (0.00-0.10); IMMATURE GRAN PERCENT AUTO 0 % (0-1); LYMPHOCYTES ABSOLUTE AUTO 2.31 K/mm3 (0.84-5.20); LYMPHOCYTES PERCENT AUTO 30 % (21-46); MONOCYTES ABSOLUTE AUTO 0.59 K/mm3 (0.16-1.47); MONOCYTES PERCENT AUTO 8 % (4-13); Mean Corpuscular HGB 29.3 pg (26.0-34.0); Mean Corpuscular HGB Conc 31.4 g/dL (31.5-36.5); Mean Corpuscular Volume 93 fL (80-100); Mean Platelet Volume 8.8 fL (9.1-12.4); NEUTROPHILS ABSOLUTE AUTO 4.49 K/mm3 (1.96-9.15); NEUTROPHILS PERCENT AUTO 59 % (41-73); Platelet Count 274 K/mm3 (150-400); RDW Coefficient Variation 13.2 % (11.7-14.2); RDW Standard Deviation 44.9 fL (35.1-46.3)
[2023-07-17 11:33] LABS: Albumin, Blood 3.7 g/dL (3.4-5.0); Bilirubin, Total 0.5 mg/dL (0.1-1.0); Bun/Creatinine Ratio 17.2 (12.0-20.0); Calcium, Blood 9.1 mg/dL (8.5-10.1); Creatinine, Blood 0.87 mg/dL (0.40-1.00); Globulin, Blood 3.7 g/dL (2.2-4.0); Potassium, Blood 3.7 mmol/L (3.5-5.5); Total Protein, Blood 7.4 g/dL (6.4-8.2)
[2023-07-17 12:32] LABS: Source, Urine Straight Cath
[2023-07-17 12:49] LABS: Appearance, Urine Turbid (Clear); Bilirubin, Urine Neg (Neg); Blood, Urine 4+ (Neg); Color, Urine Yellow (P-Yellow); Glucose Qualitative, Urine Neg (Neg); Ketones, Urine Neg (Neg); Leukocyte Esterase, Urine 3+ (Neg); Nitrite, Urine Pos (Neg); Protein, Urine 3+ (Neg); Specific Gravity, Urine 1.025 (1.003-1.022); Urobilinogen, Urine 1+ (Normal)
[2023-07-17 13:07] LABS: Bacteria Many /hpf; Squamous Epithelial Cells Few /hpf (Few); White Blood Cells, Urine TNTC /hpf (0-5)
[2023-07-17 13:08] LABS: Transitional Epithelial Cells Rare /hpf (0-Rare)
[2023-07-17] MEDS ORDERED: CEPH500 PO (14:23)
[2023-07-17 14:30] VITALS: BP 148/82
== END 2023-07-17 16:21 | disposition home or self-care (01) ==
LOC: ER 10:48
PROVIDERS: Emergency Medicine
DX: N39.0 Urinary tract infection, site not specified (principal); R07.89 Other chest pain; F03.90 Unspecified dementia, unspecified severity, without behavioral disturbance, psychotic disturbance, mood disturbance, and anxiety; Z88.8 Allergy status to other drugs, medicaments and biological substances; Z79.899 Other long term (current) drug therapy
CPT/HCPCS: 71045; 72170; 80053; 81001; 83690; 84484; 85025; 93005; 93010; 96365; 99285-25; J0696

== ENCOUNTER 2023-08-23 18:47 | Emergency (ER) | payer MEDICARE, OTHER ==
[~2023-08-23] VITALS: Ht 157.5 cm; Wt 90.7 kg
[~2023-08-23 18:47] MED LIST changes: +CEPH500 PO
[2023-08-23 19:39] LABS: BASOPHILS ABSOLUTE AUTO 0.07 K/mm3 (0.00-0.23); BASOPHILS PERCENT AUTO 1 % (0-2); EOSINOPHILS ABSOLUTE AUTO 0.14 K/mm3 (0.00-0.68); EOSINOPHILS PERCENT AUTO 2 % (0-6); Hematocrit 38.2 % (33.0-51.0); Hemoglobin 12.2 g/dL (11.5-16.0); IMMATURE GRAN ABSOLUTE AUTO 0.01 K/mm3 (0.00-0.10); IMMATURE GRAN PERCENT AUTO 0 % (0-1); LYMPHOCYTES ABSOLUTE AUTO 2.78 K/mm3 (0.84-5.20); LYMPHOCYTES PERCENT AUTO 39 % (21-46); MONOCYTES ABSOLUTE AUTO 0.59 K/mm3 (0.16-1.47); MONOCYTES PERCENT AUTO 8 % (4-13); Mean Corpuscular HGB 29.3 pg (26.0-34.0); Mean Corpuscular HGB Conc 31.9 g/dL (31.5-36.5); Mean Corpuscular Volume 92 fL (80-100); Mean Platelet Volume 9.2 fL (9.1-12.4); NEUTROPHILS ABSOLUTE AUTO 3.49 K/mm3 (1.96-9.15); NEUTROPHILS PERCENT AUTO 49 % (41-73); Platelet Count 230 K/mm3 (150-400); RDW Coefficient Variation 13.4 % (11.7-14.2); RDW Standard Deviation 45.5 fL (35.1-46.3); Red Blood Cell Count 4.16 M/mm3 (3.80-5.20); White Blood Cell Count 7.08 K/mm3 (4.00-11.30)
[2023-08-23 20:05] LABS: Albumin, Blood 3.5 g/dL (3.4-5.0); Bilirubin, Total 0.3 mg/dL (0.1-1.0); Bun/Creatinine Ratio 16.8 (12.0-20.0); Calcium, Blood 8.8 mg/dL (8.5-10.1); Creatinine, Blood 0.77 mg/dL (0.40-1.00); Globulin, Blood 3.5 g/dL (2.2-4.0); Potassium, Blood 3.8 mmol/L (3.5-5.5)
[2023-08-23 21:26] VITALS: BP 168/74
== END 2023-08-23 22:04 | disposition home or self-care (01) ==
LOC: ER 18:47
PROVIDERS: Emergency Medicine
DX: R07.89 Other chest pain (principal)
CPT/HCPCS: 71046; 80053; 83880; 84484; 85025; 93005; 93010; 99285-25

== ENCOUNTER → 2024-09-09 | Outpatient (CLI) | payer MEDICARE, OTHER ==
[2024-09-09 14:47] LABS: Source, Urine Clean Catch
[2024-09-09 15:31] LABS: Appearance, Urine Cloudy (Clear); Bilirubin, Urine Neg (Neg); Blood, Urine 3+ (Neg); Color, Urine Amber (P-Yellow); Glucose Qualitative, Urine Neg (Neg); Ketones, Urine Neg (Neg); Leukocyte Esterase, Urine 3+ (Neg); Nitrite, Urine Pos (Neg); Protein, Urine 2+ (Neg); Urobilinogen, Urine NORM (Normal)
[2024-09-09 15:50] LABS: Bacteria Many /hpf; Squamous Epithelial Cells Few /hpf (Few); White Blood Cells, Urine TNTC /hpf (0-5)
== END ==
LOC: LAB 13:15 → LAB SHORT 13:15
PROVIDERS: Family Medicine
DX: N39.0 Urinary tract infection, site not specified (principal)
CPT/HCPCS: 81001; 87077; 87086; 87186

== ENCOUNTER 2024-11-01 19:46 | Emergency (ER) | payer MEDICARE, OTHER ==
[~2024-11-01] VITALS: Ht 162.6 cm; Wt 81.7 kg
[2024-11-01 20:17] VITALS: BP 133/72
== END 2024-11-01 22:20 | disposition home or self-care (01) ==
LOC: ER 19:46
DX: S09.90XA Unspecified injury of head, initial encounter (principal); W18.30XA Fall on same level, unspecified, initial encounter; Z79.02 Long term (current) use of antithrombotics/antiplatelets; Z79.899 Other long term (current) drug therapy; Z88.8 Allergy status to other drugs, medicaments and biological substances
CPT/HCPCS: 70450; 99284-25

== ENCOUNTER 2024-11-04 15:20 | Emergency (ER) | payer MEDICARE, OTHER ==
[~2024-11-04] VITALS: Ht 167.6 cm; Wt 81.7 kg
[~2024-11-04 15:20] MED LIST changes: +ABILIFY MYCITE5 M2 PO; -ACET325 PO; +ACETAMINOPHEN500 MG PO
[2024-11-04 15:45] LABS: BASOPHILS ABSOLUTE AUTO 0.07 K/mm3 (0.00-0.23); BASOPHILS PERCENT AUTO 1 % (0-2); EOSINOPHILS ABSOLUTE AUTO 0.07 K/mm3 (0.00-0.68); EOSINOPHILS PERCENT AUTO 1 % (0-6); Hematocrit 33.6 % (33.0-51.0); Hemoglobin 10.7 g/dL (11.5-16.0); IMMATURE GRAN ABSOLUTE AUTO 0.01 K/mm3 (0.00-0.10); IMMATURE GRAN PERCENT AUTO 0 % (0-1); LYMPHOCYTES ABSOLUTE AUTO 1.86 K/mm3 (0.84-5.20); LYMPHOCYTES PERCENT AUTO 37 % (21-46); MONOCYTES PERCENT AUTO 16 % (4-13); Mean Corpuscular HGB Conc 31.8 g/dL (31.5-36.5); Mean Corpuscular Volume 88 fL (80-100); Mean Platelet Volume 8.2 fL (9.1-12.4); NEUTROPHILS ABSOLUTE AUTO 2.23 K/mm3 (1.96-9.15); NEUTROPHILS PERCENT AUTO 44 % (41-73); Platelet Count 186 K/mm3 (150-400); RDW Coefficient Variation 14.9 % (11.7-14.2); RDW Standard Deviation 48.1 fL (35.1-46.3); Red Blood Cell Count 3.82 M/mm3 (3.80-5.20); White Blood Cell Count 5.04 K/mm3 (4.00-11.30)
[2024-11-04 15:58] LABS: Albumin/Globulin Ratio 0.9 (0.8-1.8); Bilirubin, Total 0.5 mg/dL (0.1-1.0); Bun/Creatinine Ratio 11.6 (12.0-20.0); Calcium, Blood 8.1 mg/dL (8.5-10.1); Creatinine, Blood 0.95 mg/dL (0.40-1.00); Globulin, Blood 3.2 g/dL (2.2-4.0); Magnesium, Blood 1.9 mg/dL (1.6-2.4); Potassium, Blood 3.6 mmol/L (3.5-5.5); Total Protein, Blood 6.2 g/dL (6.4-8.2)
[2024-11-04 16:00] LABS: International Normalized Ratio 1.01; Prothrombin Time Results 10.8 Sec (9.7-11.5)
[2024-11-04 16:07] LABS: Source, Urine Clean Catch
[2024-11-04 16:11] LABS: Appearance, Urine Hazy (Clear); Bilirubin, Urine Neg (Neg); Blood, Urine 2+ (Neg); Color, Urine Amber (P-Yellow); Glucose Qualitative, Urine Neg (Neg); Ketones, Urine Neg (Neg); Leukocyte Esterase, Urine 1+ (Neg); Nitrite, Urine Neg (Neg); Protein, Urine 2+ (Neg); Urobilinogen, Urine 1+ (Normal)
[2024-11-04 16:21] LABS: Bacteria Many /hpf; Hyaline Casts 0-2 /lpf (0-2); Squamous Epithelial Cells Mod /hpf (Few); Transitional Epithelial Cells Rare /hpf (0-Rare)
[2024-11-04 16:37] LABS: CORONAVIRUS COVID-19 AG Negative (NEGATIVE); INFLUENZA A AG Negative (NEGATIVE); INFLUENZA B AG Negative (NEGATIVE)
[2024-11-04] MEDS ORDERED: Trimethoprim/Sulfamethoxazole DS Tab PO ONE (17:10)
[2024-11-04] MEDS ORDERED: BACTRIM DS TAB1 EAC1 PO (17:12)
[2024-11-04 20:45] VITALS: BP 159/93
== END 2024-11-04 20:53 | disposition home or self-care (01) ==
LOC: ER 15:20
PROVIDERS: Student in an Organized Health Care Education/Training Program
DX: R29.810 Facial weakness (principal); R29.818 Other symptoms and signs involving the nervous system; N30.00 Acute cystitis without hematuria; I10 Essential (primary) hypertension; E78.00 Pure hypercholesterolemia, unspecified; I25.10 Atherosclerotic heart disease of native coronary artery without angina pectoris; K21.9 Gastro-esophageal reflux disease without esophagitis; I69.90 Unspecified sequelae of unspecified cerebrovascular disease; Z88.8 Allergy status to other drugs, medicaments and biological substances; Z79.899 Other long term (current) drug therapy
CPT/HCPCS: 70450; 70496; 70498; 71045; 80053; 81001; 82947; 83735; 85025; 85610; 85730; 87077; 87086; 87186; 87428-QW; 93005; 93010; 99285-25; A9270; P9612; Q9967

== ENCOUNTER 2024-11-06 17:23 | Emergency (ER) | payer MEDICARE, OTHER ==
[~2024-11-06] VITALS: Ht 162.6 cm; Wt 81.7 kg
[~2024-11-06 17:23] MED LIST changes: +BACTRIM DS TAB1 EAC1 PO
[2024-11-06] MEDS ORDERED: CefTRIAXone Sodium 1,000 MG in NS 100 ML IV ONE (17:45)
[2024-11-06] MEDS ORDERED: Lactated Ringer's 1,000 ML IV ONE (17:45)
[2024-11-06 18:40] LABS: BASOPHILS ABSOLUTE AUTO 0.05 K/mm3 (0.00-0.23); BASOPHILS PERCENT AUTO 1 % (0-2); EOSINOPHILS ABSOLUTE AUTO 0.16 K/mm3 (0.00-0.68); EOSINOPHILS PERCENT AUTO 3 % (0-6); Hemoglobin 11.4 g/dL (11.5-16.0); IMMATURE GRAN ABSOLUTE AUTO 0.01 K/mm3 (0.00-0.10); IMMATURE GRAN PERCENT AUTO 0 % (0-1); LYMPHOCYTES ABSOLUTE AUTO 1.79 K/mm3 (0.84-5.20); LYMPHOCYTES PERCENT AUTO 29 % (21-46); MONOCYTES ABSOLUTE AUTO 0.76 K/mm3 (0.16-1.47); MONOCYTES PERCENT AUTO 12 % (4-13); Mean Corpuscular HGB 27.9 pg (26.0-34.0); Mean Corpuscular HGB Conc 32.6 g/dL (31.5-36.5); Mean Corpuscular Volume 86 fL (80-100); Mean Platelet Volume 8.5 fL (9.1-12.4); NEUTROPHILS ABSOLUTE AUTO 3.44 K/mm3 (1.96-9.15); NEUTROPHILS PERCENT AUTO 55 % (41-73); Platelet Count 171 K/mm3 (150-400); RDW Coefficient Variation 14.7 % (11.7-14.2); RDW Standard Deviation 46.2 fL (35.1-46.3); Red Blood Cell Count 4.09 M/mm3 (3.80-5.20); White Blood Cell Count 6.21 K/mm3 (4.00-11.30)
[2024-11-06 18:45] VITALS: BP 114/82
[2024-11-06 19:14] LABS: Albumin, Blood 2.9 g/dL (3.4-5.0); Albumin/Globulin Ratio 0.8 (0.8-1.8); Bilirubin, Total 0.6 mg/dL (0.1-1.0); Bun/Creatinine Ratio 18.3 (12.0-20.0); Calcium, Blood 8.2 mg/dL (8.5-10.1); Creatinine, Blood 1.04 mg/dL (0.40-1.00); Globulin, Blood 3.5 g/dL (2.2-4.0); Potassium, Blood 3.7 mmol/L (3.5-5.5); Total Protein, Blood 6.4 g/dL (6.4-8.2)
[2024-11-06] MEDS ORDERED: CEPH500 PO (19:51)
== END 2024-11-06 20:27 | disposition home or self-care (01) ==
LOC: ER 17:23
PROVIDERS: Student in an Organized Health Care Education/Training Program
DX: N30.00 Acute cystitis without hematuria (principal); D53.9 Nutritional anemia, unspecified; I69.351 Hemiplegia and hemiparesis following cerebral infarction affecting right dominant side; I25.10 Atherosclerotic heart disease of native coronary artery without angina pectoris; E78.00 Pure hypercholesterolemia, unspecified; I10 Essential (primary) hypertension; E78.5 Hyperlipidemia, unspecified; K21.9 Gastro-esophageal reflux disease without esophagitis; M81.0 Age-related osteoporosis without current pathological fracture; Z87.440 Personal history of urinary (tract) infections; Z88.8 Allergy status to other drugs, medicaments and biological substances; Z79.01 Long term (current) use of anticoagulants; Z79.899 Other long term (current) drug therapy
CPT/HCPCS: 80053; 83735; 85025; 96365; 99283-25; J0696; J7120

== ENCOUNTER 2024-11-09 13:03 | Emergency (ER) | payer MEDICARE, OTHER ==
[~2024-11-09] VITALS: Ht 170.2 cm; Wt 99.8 kg
[2024-11-09 14:48] LABS: BASOPHILS ABSOLUTE AUTO 0.06 K/mm3 (0.00-0.23); BASOPHILS PERCENT AUTO 1 % (0-2); EOSINOPHILS ABSOLUTE AUTO 0.02 K/mm3 (0.00-0.68); EOSINOPHILS PERCENT AUTO 0 % (0-6); Hematocrit 35.6 % (33.0-51.0); Hemoglobin 11.6 g/dL (11.5-16.0); IMMATURE GRAN ABSOLUTE AUTO 0.04 K/mm3 (0.00-0.10); IMMATURE GRAN PERCENT AUTO 1 % (0-1); LYMPHOCYTES ABSOLUTE AUTO 1.32 K/mm3 (0.84-5.20); LYMPHOCYTES PERCENT AUTO 15 % (21-46); MONOCYTES ABSOLUTE AUTO 0.85 K/mm3 (0.16-1.47); MONOCYTES PERCENT AUTO 10 % (4-13); Mean Corpuscular HGB 27.8 pg (26.0-34.0); Mean Corpuscular HGB Conc 32.6 g/dL (31.5-36.5); Mean Corpuscular Volume 85 fL (80-100); NEUTROPHILS ABSOLUTE AUTO 6.26 K/mm3 (1.96-9.15); NEUTROPHILS PERCENT AUTO 73 % (41-73); Platelet Count 210 K/mm3 (150-400); RDW Coefficient Variation 14.8 % (11.7-14.2); RDW Standard Deviation 46.3 fL (35.1-46.3); Red Blood Cell Count 4.17 M/mm3 (3.80-5.20); White Blood Cell Count 8.55 K/mm3 (4.00-11.30)
[2024-11-09 14:53] LABS: Albumin, Blood 2.8 g/dL (3.4-5.0); Albumin/Globulin Ratio 0.7 (0.8-1.8); Bilirubin, Total 1.1 mg/dL (0.1-1.0); Bun/Creatinine Ratio 16.7 (12.0-20.0); Calcium, Blood 8.3 mg/dL (8.5-10.1); Creatinine, Blood 0.84 mg/dL (0.40-1.00); Globulin, Blood 3.9 g/dL (2.2-4.0); Potassium, Blood 3.7 mmol/L (3.5-5.5); Total Protein, Blood 6.7 g/dL (6.4-8.2)
[2024-11-09] MEDS ORDERED: Crestor40 MG PO (15:08)
[2024-11-09] MEDS ORDERED: B-12500 MC2 PO (15:09)
[2024-11-09] MEDS ORDERED: GABA100 PO (15:11)
[2024-11-09] MEDS ORDERED: BISA10S PR (15:13)
[2024-11-09] MEDS ORDERED: LOPERAMIDE1 MG/7.10 PO (15:15)
[2024-11-09] MEDS ORDERED: OXYC5 PO (15:17)
[2024-11-09] MEDS ORDERED: DULCOLAX400 MG/5 M PO (15:17)
[2024-11-09] MEDS ORDERED: ALBU90OI INH (15:19)
[2024-11-09] MEDS ORDERED: ARTHRITIS PAIN150 GM TOP (15:20)
[2024-11-09] MEDS ORDERED: MethylPREDNISolone Sod Succ 125 MG Vial IV ONE (16:15)
[2024-11-09] MEDS ORDERED: Ipratropium/Albuterol SulF 2.5-0.5MG/3 ML Amp INH ONE (16:15)
[2024-11-09 16:46] LABS: Source, Urine Straight Cath
[2024-11-09 16:49] LABS: Appearance, Urine Hazy (Clear); Blood, Urine 5+ (Neg); Color, Urine Amber (P-Yellow); Glucose Qualitative, Urine Neg (Neg); Ketones, Urine Neg (Neg); Leukocyte Esterase, Urine 1+ (Neg); Nitrite, Urine Pos (Neg); Protein, Urine 2+ (Neg); Specific Gravity, Urine 1.025 (1.003-1.022); Urobilinogen, Urine 2+ (Normal)
[2024-11-09 17:00] LABS: Bilirubin, Urine 1+ (Neg)
[2024-11-09 17:01] LABS: Bacteria Many /hpf; Hyaline Casts 0-2 /lpf (0-2); Squamous Epithelial Cells Many /hpf (Few); Transitional Epithelial Cells Few /hpf (0-Rare)
[2024-11-09 17:02] LABS: Mucus Light (0-Heavy)
[2024-11-09] MEDS ORDERED: CefTRIAXone Sodium 1,000 MG in NS 100 ML IV ONE (17:25)
[2024-11-09] MEDS ORDERED: CEFD300 PO (19:06)
[2024-11-09] MEDS ORDERED: PRED20 PO (19:06)
[2024-11-09 21:00] VITALS: BP 152/67
== END 2024-11-09 21:00 | disposition home or self-care (01) ==
LOC: ER 13:03
PROVIDERS: Emergency Medicine
DX: J98.01 Acute bronchospasm (principal); R41.82 Altered mental status, unspecified; N39.0 Urinary tract infection, site not specified; I10 Essential (primary) hypertension; K21.9 Gastro-esophageal reflux disease without esophagitis; Z88.8 Allergy status to other drugs, medicaments and biological substances; Z79.2 Long term (current) use of antibiotics; Z79.899 Other long term (current) drug therapy; Z79.01 Long term (current) use of anticoagulants
CPT/HCPCS: 70450; 71045; 80053; 81001; 85025; 87077; 87086; 87186; 93005; 93010; 94640; 94664; 96374; 96375; 99285-25; J0696; J2919